=== PATIENT | male | born 1990 | race Native Hawaiian/Other Pacific Islander ===

== ENCOUNTER 2019-12-24 12:47 | Emergency (ER) | payer OTHER ==
[~2019-12-24] VITALS: Ht 182.9 cm; Wt 81.6 kg
[2019-12-24 12:54] VITALS: BP 145/98; TEMP 99.4
== END 2019-12-24 14:33 | disposition home or self-care (01) ==
LOC: ED 12:47
DX: S62.356A Nondisplaced fracture of shaft of fifth metacarpal bone, right hand, initial encounter for closed fracture (principal); W22.09XA Striking against other stationary object, initial encounter; Y92.098 Other place in other non-institutional residence as the place of occurrence of the external cause
CPT/HCPCS: 99283

== ENCOUNTER 2020-12-28 12:56 | Emergency (ER) | payer OTHER | END 2020-12-28 15:17 | disposition home or self-care (01) | LOC: ED 12:56 | PROC: 0HQKXZZ Repair Right Lower Leg Skin, External Approach (ICD-10-PCS; principal; 2020-12-28) | PROC: 2W3LX1Z Immobilization of Right Lower Extremity using Splint (ICD-10-PCS; 2020-12-28) | DX: S81.011A Laceration without foreign body, right knee, initial encounter (principal); S80.01XA Contusion of right knee, initial encounter; W26.8XXA Contact with other sharp object(s), not elsewhere classified, initial encounter; Y92.098 Other place in other non-institutional residence as the place of occurrence of the external cause | CPT/HCPCS: 90471; 90715; 96360; 96365; 96375; 99284; J0690; J2270; J2405; J7040 ==